=== PATIENT | female | born 1985 | race Caucasian/White ===

== ENCOUNTER 2018-07-31 06:33 | Inpatient (IN) | payer BC ==
[~2018-07-31] VITALS: Ht 162.6 cm; Wt 106.4 kg
[2018-07-31] VITALS (69 sets, daily range): BP systolic 88–142; BP diastolic 48–89; PULSE 60–130; TEMP 97.2–99
[~2018-07-31 06:33] MED LIST: MOTRIN 600600 MG/TAB PO; NO HOME MEDICATIONS; PEPCID 20MG TAB20 MG PO; PHENERGAN 25 TA25 MG PO; PRENATAL1 TA7 PO
--- NOTE | 2018-07-31 07:15 | NUR ---
Patient ambulatory to unit accompanied by spouse for a scheduled pitocin induction of labor. Oriented to room and call light, gown on and resting in bed. Patient denies any leaking of fluid or vaginal bleeding and states baby is very active. FHR and contraction monitors placed and explained. VS assessed. Assessment completed. Consents signed. IV started in left hand at 0740 and labs collected from site and sent to lab. LR infusing without difficulty, Penicillin G started per GBS positive protocol and patient denies any drug allergies. 0800: Pitocin started per protocol.
[2018-07-31] MEDS ORDERED: ZYRTEC 10MG10 MG PO (07:21)
[2018-07-31] MEDS ORDERED: ZANTAC 7575 MG PO (07:22)
[2018-07-31 07:58] LABS: BASO % 0.4 % (0.0-2.0); EOS # 0.1 (0.0-0.7); EOS % 0.7 % (0-4.0); GRAN # 6.4 (1.4-6.5); GRAN % 69.7 % (42.2-75.2); HEMOGLOBIN 11.9 g/dl (12.5-16.0); LYMPH # 1.7 (1.2-3.4); LYMPH % 18.1 % (20.0-51.0); MEAN CELL VOLUME 87 fl (80.0-100.0); MEAN CORPUSCULAR HEMOGLOBIN 29 pg (27.0-31.0); MEAN CORPUSCULAR HGB CONC 33 g/dl (33.0-37.0); MEAN PLATELET VOLUME 10.3 fl (7.4-10.4); MONO % 10.4 % (1.7-9.3); PLATELET COUNT 150 K/mm3 (130-400); RED BLOOD COUNT 4.17 M/mm3 (4.10-5.30); REDCELL DISTRIBUTION WIDTH-CV 13.8 % (11.5-14.5)
[2018-07-31 07:59] LABS: HEMATOCRIT 36.3 % (37.0-47.0)
--- NOTE | 2018-07-31 08:20 | NUR ---
0820: patient resting in bed. Denies need. Pitocin increased to 4 mu/min. SVE /-4. Cervix posterior and unknown presenting part due to high presentation.
--- NOTE | 2018-07-31 09:14 | NUR ---
0910: Dr. Sanchez on unit and reviews FHR and contraction pattern. 0912: Bedside ultrasound and vertex position verified. SVE /-2. Attempt to AROM but not successful. Will continue with pitocin induction and verbal order that patient can have an epidural when desires.
--- NOTE | 2018-07-31 09:30 | NUR ---
0935: Patient calls out and states she thinks her water broke around 0930. She felt a gush of fluid. Light green tinged fluid noted on chux pad and towel. SVE /-2, amniotest positive and fluid noted on glove with exam. Pericare provided and patient resting in bed. Patient states she is starting to feel cramping in her lower abdomen.
--- NOTE | 2018-07-31 10:20 | NUR ---
Patient rating pain with contractions around a 4-5. Patient requesting an epidural at this time. Veronica Carrasquillo CRNA in hospital and notified of patient request. LR bolus started. 1020: Pitocin increased to 10 mu/min
--- NOTE | 2018-07-31 10:35 | NUR ---
1035: Patient sitting up at side of bed for epidural placement. Veronica Carrasquillo CRNA in room and epidural explained. 1038: Epidural catheter placed, no reaction from patient. 1041: Test dose given. No reaction to test dose. Epidural catheter secured to patients back and patient repositioned wedged right at 1048. See anesthesia records.
--- NOTE | 2018-07-31 13:35 | NUR ---
1335: Dr. Sanchez on unit and reviews FHR and contraction pattern. In room. SVE /-[address] Sanchez. While in room with Dr. Sanchez verbal order to increase pitocin. Pitocin increased to 14mu/min. Patient repositioned to far left lateral and right leg up in [facility].
--- NOTE | 2018-07-31 14:25 | NUR ---
1425: Patient repositioned to far right lateral and left leg up in stirrups. Not tracing FHR well with external monitor. Dr. Sanchez at bedside and scalp electrode placed and tracing FHR well at 1435. SVE /-[address] Sanchez. Patient resting comfortably at this time.
--- NOTE | 2018-07-31 16:20 | NUR ---
1620: When patient repositioned patient feels like her shoulder is wet. Wet spot noted on bed sheet. Epidural catheter yellow connector disconnected from epidural catheter. Epidural pump stopped. Veronica Carrasquillo CRNA called to room. Epidural catheter removed and new catheter placed. 1635: Patient sitting up at side of bed for epidural placement. 1640: Epidural catheter placed. Test dose at 1641. No reaction to test dose. See anesthesia records.
--- NOTE | 2018-07-31 17:05 | NUR ---
1705: Recurrent FHR late decelerations beginning. Pitocin off. LR bolus infusing. Patient feeling nauseated and pale in color. VS 88/48, pulse 60. 1708: Ephedrine 10mg given IV push. 1710: Patient vomits 350 ml clear fluid. 1720: Ephedrine 10mg given IV push. 1722: FHR accelerations noted and back to baseline. Dr. Sanchez currently in surgery but Dr. Evans at nurses station and reviews FHR and contraction pattern. Verbal order from Dr. Evans to restart pitocin at 20mu/min. Pitocin restarted at 1722.
--- NOTE | 2018-07-31 18:10 | NUR ---
1809: FHR deceleration down to 80-90 bpm lasting for 100 seconds. Pitocin off. LR bolus infusing and Oxygen on via face mask at 10L. SVE 5/50/-2. FHR deceleration occurs again at 1814. Dr. Sanchez in room and SVE. Patient repositioned far right lateral then to hand and knees position. FHR remains at 100-110 bpm starting at 1817. Dr. Sanchez and this nurse remain at bedside. 1824: Ricki Umana RN at bedside and shift report given.
--- NOTE | 2018-07-31 19:00 | NUR ---
1829- Bedside report from VICTORINA Maldonado. at bedside at this time. remains on unit monitoring FHT. 1854- Pitocin restarted at 10 mU per . 1924- at bedside. SVE /-2 by MD. Plan of care discussed with patient and spouse. 1929- Patient repositioned to RL with peanut ball per . Continue to change positions every 30 minutes per MD alternating between RL, LL, and angeline position.
--- NOTE | 2018-07-31 22:00 | NUR ---
2100- Deceleration into the 70's during repositioning. Patient repositioned LL. FHR recovered with moderate variability. 0- SVE 6-7/70/-2 by this RN. Contractions are difficult to trace with maternal side-lying position, but are able to be palpated and felt by patient every 2-3 minutes. Minimal variability noted. updated. 2230- SVE 7-8/70/-1 by . Fetus found to be in OA position. Prolonged deceleration noted after SVE. Scalp stimulation attempted by RN. and 2 RN's at bedside. Deceleration into the 70's for 2 minutes. FHR recovered to baseline with reposition to LL. updated .
--- NOTE | 2018-07-31 23:45 | NUR ---
2315- at bedside. SVE 1 by . updated . 2785- Report given to VICTORINA Nava.
--- NOTE | 2018-07-31 23:59 | NUR ---
Variable deceleration down to 60 bpm lasting about 1 minute. Pt repositioned to left lateral side. Dr. Sanchez at bedside for SVE 8/0. discussing plan of care with patient and spouse. FHR back to baseline. Pt repositioned to Right lateral for comfort.
[2018-08-01] VITALS (17 sets, daily range): BP systolic 113–145; BP diastolic 55–107; PULSE 90–144; TEMP 97.7–98.5
--- NOTE | 2018-08-01 00:37 | NUR ---
Pt called out stating she is feeling a lot more pressure. Dr. Sanchez at bedside for SVE. Anterior lip remains at 0 station. Pt positioned into high fowlers. Plan of care discussed with patient and spouse.
--- NOTE | 2018-08-01 00:55 | NUR ---
Dr. Sanchez at bedside for SVE, . Pt positioned into footplates to start pushing. Pt educated on pushing techniques. Initial push at 0101
--- NOTE | 2018-08-01 01:40 | NUR ---
0110 - Dr. Sanchez at perineum pushing with patient, pt pushing well with contractions. 0120 - Pt continues to push well with contractions. Late deceleration noted after contraction down to 90 bpm with spontaneous return to baseline. Bourne catheter removed, 200 mL of blood tinged urine out. Dr. Sanchez remains at bedside. 0140 - Spontaneous vaginal delivery of viable baby boy. Baby bulb suctioned by Dr. Sanchez then placed on mothers abdomen. Care of infant assumed to nursery RNEdwige. Cord clamped by Dr. Sanchez and cut by FOB. Pitocin off. Cord blood obtained 0142 - Dr. Sanchez repairing 1st degree perineal tear with 3-0 chromic. 0149 - Spontaneous delivery of intact placenta. Pitocin restarted at 333 mL/hr per protocol. Fundal massage started by this RN. Fundus firm and down 1 from umbilicus, a few small clots with fundal massage. Red carroll by Dr. Sanchez with little amount of urine return. Pericare performed. Ice pack applied to perineum. Pt repositioned to high fowlers in bed. Post recovery started.
--- NOTE | 2018-08-01 04:20 | NUR ---
Pt able to lift and hold legs off of bed for 5 seconds each. Pt repositioned to edge of bed. Epidural catheter removed. Tip blue, round, and intact. Pt tolerated well. Pt able to ambulate to bathroom with standby assist. Pt able to void 900 mL. Pericare explained and performed. New gown on. New panties and new ice pack. Pt transferred to room 216 by wheelchair with belongings.
--- NOTE | 2018-08-01 10:54 | NUR ---
Family was present, I gave my congratulations on their new baby.
[2018-08-02] VITALS: BP 130/76; PULSE 97; TEMP 98.6
[2018-08-02 04:00] VITALS: BP 134/81; PULSE 87; TEMP 98
[2018-08-02 10:34] VITALS: BP 123/80; PULSE 94; TEMP 97.5
[2018-08-02] MEDS ORDERED: IBU800 M1 PO (12:34)
[2018-08-02 13:45] VITALS: BP 132/78; PULSE 88; TEMP 98.3
== END 2018-08-02 15:05 | disposition home or self-care (01) | DRG 807 ==
LOC: LDR 06:33 → OB 08-01 04:30
PROVIDERS: ADMIT Student in an Organized Health Care Education/Training Program
PROC: 3E033VJ Introduction of Other Hormone into Peripheral Vein, Percutaneous Approach (ICD-10-PCS; 2018-07-31)
PROC: 10907ZC Drainage of Amniotic Fluid, Therapeutic from Products of Conception, Via Natural or Artificial Opening (ICD-10-PCS; 2018-07-31)
PROC: 10E0XZZ Delivery of Products of Conception, External Approach (ICD-10-PCS; principal; 2018-08-01)
PROC: 0HQ9XZZ Repair Perineum Skin, External Approach (ICD-10-PCS; 2018-08-01)
DX: O76 Abnormality in fetal heart rate and rhythm complicating labor and delivery (principal); Z37.0 Single live birth; Z3A.39 39 weeks gestation of pregnancy; O99.824 Streptococcus B carrier state complicating childbirth; O99.214 Obesity complicating childbirth; O99.344 Other mental disorders complicating childbirth; F32.9 Major depressive disorder, single episode, unspecified; O70.0 First degree perineal laceration during delivery; O77.0 Labor and delivery complicated by meconium in amniotic fluid
CPT/HCPCS: J2540; J2590; J7120

== ENCOUNTER 2019-05-18 04:48 | Emergency (ER) | payer OTHER ==
[~2019-05-18] VITALS: Ht 165.1 cm; Wt 90.9 kg
[~2019-05-18 04:48] MED LIST changes: +IBU800 M1 PO; +ZANTAC 7575 MG PO; +ZYRTEC 10MG10 MG PO
[2019-05-18 04:54] VITALS: TEMP 98.4
[2019-05-18 05:15] LABS: COLLECTION METHOD CLEAN CATCH
[2019-05-18 05:19] LABS: BASO # 0.1 (0.0-0.2); BASO % 0.7 % (0.0-2.0); EOS # 0.1 (0.0-0.7); EOS % 1.3 % (0-4.0); GRAN # 4.9 (1.4-6.5); GRAN % 58.8 % (42.2-75.2); HEMATOCRIT 41.6 % (37.0-47.0); HEMOGLOBIN 13.9 g/dl (12.5-16.0); LYMPH # 2.5 (1.2-3.4); LYMPH % 29.8 % (20.0-51.0); MEAN CELL VOLUME 89 fl (80.0-100.0); MEAN CORPUSCULAR HEMOGLOBIN 30 pg (27.0-31.0); MEAN CORPUSCULAR HGB CONC 33 g/dl (33.0-37.0); MEAN PLATELET VOLUME 9.2 fl (7.4-10.4); MONO # 0.8 (0.1-0.6); PLATELET COUNT 186 K/mm3 (130-400)
[2019-05-18 05:31] LABS: MUCOUS Present /lpf; PH 6 (5-8); SQUAMOUS EPITHELIAL 0-2 /hpf; URINE APPEARANCE Clear; URINE BACTERIA None Seen /hpf; URINE BILIRUBIN Negative (NEGATIVE); URINE BLOOD 3+ (NEGATIVE); URINE COLOR Yellow; URINE GLUCOSE Negative (NEGATIVE); URINE KETONE Negative (NEGATIVE); URINE LEUKOCYTE ESTERASE Negative (NEGATIVE); URINE NITRATE Negative (NEGATIVE); URINE PROTEIN(semi-quant) Negative (NEGATIVE); URINE UROBILINOGEN Negative (NEGATIVE)
[2019-05-18 05:39] LABS: ALBUMIN 4.7 gm/dL (3.5-5.0); BILIRUBIN,TOTAL 0.6 mg/dL (0.0-1.0); CALCIUM 9.5 mg/dL (8.4-10.2); CREATININE, serum 0.62 (0.52-1.25); POTASSIUM 3.6 mmol/L (3.4-5.0); TOTAL PROTEIN 8.1 gm/dL (6.4-8.2)
[2019-05-18] MEDS ORDERED: ZOFRAN 4MG T4 MG/TAB PO (07:15)
[2019-05-18] MEDS ORDERED: NORA-BE0.35 MG PO (07:15)
[2019-05-18] MEDS ORDERED: PHENERGAN 25 TA25 MG PO (07:15)
[2019-05-18 08:13] VITALS: BP 121/71; PULSE 85
== END 2019-05-18 08:15 | disposition home or self-care (01) ==
LOC: COL.ER 04:48
PROVIDERS: Emergency Medicine
DX: N92.0 Excessive and frequent menstruation with regular cycle (principal); R11.2 Nausea with vomiting, unspecified; R19.7 Diarrhea, unspecified; R10.30 Lower abdominal pain, unspecified
CPT/HCPCS: J1885; J2405; J7030; Q9967

== ENCOUNTER → 2019-11-05 | Outpatient (CLI) | payer OTHER ==
[~2019-11-05] MED LIST changes: +NORA-BE0.35 MG PO; +ZOFRAN 4MG T4 MG/TAB PO
== END ==
LOC: BHSO 10:56
DX: F41.0 Panic disorder [episodic paroxysmal anxiety] (principal)
CPT/HCPCS: G0463

== ENCOUNTER → 2020-01-14 | Outpatient (CLI) | payer OTHER | LOC: BHSO 13:32 | DX: F31.81 Bipolar II disorder (principal) | CPT/HCPCS: G0463 ==